=== PATIENT | male | born 1955 | race Two or more races ===

== ENCOUNTER 2020-12-29 06:40 | Day surgery (SDC) | payer OTHER ==
[~2020-12-29 06:40] MED LIST: DOXYCYCLINE HY100 MG PO; HYZAAR 100-12.1 EACH PO; SIMVASTATIN5 MG; TOPROL XL100 M1 PO
[2020-12-29] MEDS ORDERED: PERCOCET 5-3251 EACH PO (10:03)
== END 2020-12-29 16:20 | disposition home or self-care (01) ==
LOC: CIR.AMB 06:40
PROVIDERS: ATTEND Surgery
DX: N52.8 Other male erectile dysfunction (principal); Z20.822 Contact with and (suspected) exposure to COVID-19
CPT/HCPCS: 54405; C1813